=== PATIENT | female | born 1960 | race Caucasian/White ===

== ENCOUNTER 2018-10-22 19:15 | Emergency (ER) | payer BC, OTHER ==
[~2018-10-22] VITALS: Ht 160 cm; Wt 78.6 kg
[2018-10-22 19:24] VITALS: Ht 160 cm; Wt 78.6 kg
[2018-10-22] MEDS ORDERED: ONDANSETRON 4 MG INJ IV STA (20:32)
[2018-10-22] MEDS ORDERED: morphine 4 MG/ML VIAL IV STA (20:32)
[2018-10-22] MEDS ORDERED: IOHEXOL 300MG/ML 150 ML BTL ONE (21:52)
[2018-10-22] MEDS ORDERED: SOD CHLORIDE 0.9% 100 ML ONE (21:52)
[2018-10-22] MEDS ORDERED: KETOROLAC 30 MG INJ IV STA (22:29)
[2018-10-22] MEDS ORDERED: CANA100T PO (22:30)
[2018-10-22] MEDS ORDERED: LISI1TAB4 PO (22:30)
[2018-10-22] MEDS ORDERED: METF100010 PO (22:30)
[2018-10-22] MEDS ORDERED: OMEP40CA6 PO (22:30)
[2018-10-22] MEDS ORDERED: GLIP10TA3 PO (22:30)
--- NOTE | 2018-10-22 22:54 | ERD ---
ER Documentation Chief Complaint Chief Complaint C/O WORSENING EPIGASTRIC AP X6 MONTHS HPI This is a very pleasant 58-year-old female has a known history of rrd-wevyoqe-rrdldupyc diabetes mellitus who presents to the emergency department complaining of epigastric pain for the past 6 months. The patient indicates that she has been seen by her primary care physician and had an ultrasound of the abdomen for evaluation the pain. She was told that this was normal. She had been given antacids to treat suspected GERD. Given that the pain still persisted 3 months later she went to an urgent care clinic. Ultrasound was again performed and found to be normal. She stated that the pain is a retrosternal burning-like pain. The pain will radiate from the epigastric region to the left upper quadrant in the left lower quadrant. She denies any weight loss. She had no hemoptysis no hematemesis no melanotic stools. Her past surgical history includes a cholecystectomy. She states there is no alleviating or exacerbating factors to the pain. It is intermittent. Given that her symptoms have not improved she came to the emergency department to be further evaluated. She has no shortness of breath at rest or exertion. ROS All systems reviewed and are negative except as per history of present illness. Medications Home Meds Reported Medications Omeprazole* (Omeprazole*) 40 Mg Capsule.dr, 40 MG PO DAILY, #30 CAP 10/22/18 Canagliflozin (Invokana) 100 Mg Tablet, 100 MG PO QAM, TAB 10/22/18 Lisinopril/Hydrochlorothiazide (Lisinopril-Hctz 10-12.5 mg Tab) 1 Each Tablet, 1 EACH PO QAM, TAB 10/22/18 Glipizide* (Glucotrol*) 10 Mg Tablet, 10 MG PO BID, TAB 10/22/18 Metformin Hcl* (Metformin Hcl*) 1,000 Mg Tablet, 1000 MG PO WITH BREAKFAST DINNE, #30 TAB 10/22/18 Allergies Allergies: Coded Allergies: No Known Allergy (Unverified , 10/22/18) PMhx/Soc History of Surgery: Yes (LAP JADIEL ) Anesthesia Reaction: No Hx Neurological Disorder: No Hx Respiratory Disorders: No Hx Psychiatric Problems: No Hx Miscellaneous Medical Probl: No Hx Alcohol Use: No Hx Substance Use: No Hx Tobacco Use: No Smoking Status: Never smoker Physical Exam Vitals Vital Signs Date Temp Pulse Resp B/P (MAP) Pulse Ox O2 O2 Flow FiO2 Time Delivery Rate 10/22/18 99.6 105 20 162/84 95 19:24 (110) Physical Exam Constitutional:Well-developed. Well-nourished. HEENT:Normocephalic. Atraumatic.Pupils were equal round reactive to light. Moist mucous membranes.No tonsillar exudates. Respiratory: Not using accessory muscles of respiration.Lungs were clear to auscultation bilaterally. No rhonchi. No rales. No wheezing. Cardiovascular: Regular rate regular rhythm.No murmurs. No rubs were appreciated.S1, S2 normal. Distal pulses are palpable 2+ bilaterally. GI: Abdomen was soft. Epigastric tenderness. Mild tenderness in the left lower quadrant. Non Distended. No pulsatile abdominal masses or bruits. No rebound. No guarding. Bowel sounds were present and normal. Skin: No petechia, no purpura. No lesions on the palms or the soles of the feet. No maculopapular rash. NEURO: Patient was alert, awake, orientated x3.No facial droop. Gait observed and normal with no ataxia.Speech had regular rate and rhythm. No focal neurological deficits. Result Diagram: 10/22/18202310/22/182023 Results 24 hrs Laboratory Tests Test 10/22/18 20:24 White Blood Count 5.8 10^3/ul Red Blood Count 5.47 10^6/ul Hemoglobin 14.6 g/dl Hematocrit 45.0 % Mean Corpuscular Volume 82.3 fl Mean Corpuscular Hemoglobin 26.7 pg Mean Corpuscular Hemoglobin Concent 32.4 g/dl Red Cell Distribution Width 13.1 % Platelet Count 280 10^3/UL Mean Platelet Volume 10.8 fl Immature Granulocytes % 0.200 % Neutrophils % 50.7 % Lymphocytes % 39.6 % Monocytes % 6.9 % Eosinophils % 1.0 % Basophils % 1.6 % Nucleated Red Blood Cells % 0.0 /100WBC Immature Granulocytes # 0.010 10^3/ul Neutrophils # 2.9 10^3/ul Lymphocytes # 2.3 10^3/ul Monocytes # 0.4 10^3/ul Eosinophils # 0.1 10^3/ul Basophils # 0.1 10^3/ul Nucleated Red Blood Cells # 0.0 10^3/ul Prothrombin Time 11.5 Sec Prothrombin Time Ratio 0.9 INR International Normalized Ratio 0.83 Activated Partial Thromboplast Time 24.3 Sec Urine Color STRAW Urine Clarity CLEAR Urine pH 7.0 Urine Specific [place] 1.026 Urine Ketones TRACE mg/dL Urine Nitrite NEGATIVE mg/dL Urine Bilirubin NEGATIVE mg/dL Urine Urobilinogen NEGATIVE mg/dL Urine Leukocyte Esterase 1+ Enrique/ul Urine Microscopic RBC 2 /HPF Urine Microscopic WBC 1 /HPF Urine Hemoglobin 1+ mg/dL Urine Glucose 3+ mg/dL Urine Total Protein NEGATIVE mg/dl Sodium Level 142 mmol/L Potassium Level 4.1 mmol/L Chloride Level 105 mmol/L Carbon Dioxide Level 25 mmol/L Anion Gap 12 Blood Urea Nitrogen 9 mg/dl Creatinine 0.43 mg/dl Est Glomerular Filtrat Rate mL/min > 60 mL/min Glucose Level 172 mg/dl Calcium Level 9.4 mg/dl Total Bilirubin 0.6 mg/dl Direct Bilirubin 0.00 mg/dl Indirect Bilirubin 0.6 mg/dl Aspartate Amino Transf (AST/SGOT) 31 IU/L Alanine Aminotransferase (ALT/SGPT) 23 IU/L Alkaline Phosphatase 123 IU/L Troponin I < 0.012 ng/ml Total Protein 7.9 g/dl Albumin 4.4 g/dl Globulin 3.50 g/dl Albumin/Globulin Ratio 1.25 Amylase Level 75 U/L Lipase 40 U/L Current Medications Medications Dose Sig/Joie Start Time Status Last (Trade) Ordered Route PRN Stop Time Admin Dose Reason Admin Morphine 4 mg ONCE STAT 10/22/18 DC Sulfate IV 20:32 10/22/18 (morphine) 20:35 Ondansetron 4 mg ONCE STAT 10/22/18 DC HCl (Zofran IV 20:32 10/22/18 Inj) 20:35 IV Flush 10 ml STK-MED 10/22/18 DC 10/22/18 (NS 10 ml) ONCE .ROUTE 21:52 10/22/18 22:04 21:53 Sodium 100 ml @ ud STK-MED 10/22/18 DC 10/22/18 Chloride ONCE .ROUTE 21:52 10/22/18 22:04 21:53 Iohexol 150 ml STK-MED 10/22/18 DC 10/22/18 (Omnipaque ONCE .ROUTE 21:52 10/22/18 22:04 300mg/ ml) 21:53 Ketorolac 30 mg ONCE STAT 10/22/18 DC 10/22/18 Tromethamine IV 22:29 10/22/18 22:33 (Toradol) 22:30 Procedures/MDM The patient presented to the emergency department with epigastric pain. My differential diagnosis included but was not limited to abdominal aortic aneurysm, choledocholithiasis, gallstone ileus, renal colic, pyelonephritis, pancreatitis, peptic ulcer disease, atypical myocardical infarction, mesenteric ischemia, GERD, pulmonary infarction. The patient was placed on a registered nurse cardiac, continuous pulse oximetry and IV access was established by nursing staff. An EKG was obtained to rule out myocardial ischemia. There was no elevation of LFTs to suggest ductal obstruction, cholangitis, cholecystiitis or hepatitis. Given that the urinalysis did not show bilirubinuria, my suspicion for common duct obstruction or hepatitis was low. 12 Lead EKG tracing ordered and reviewed by myself showed: Sinus tachycardia 103 bpm and no arrhythmia. CA interval normal. QRS duration normal. No ST segment elevation No ST segment depression. No changes consistent with acute ischemia. I did not obtain an ultrasound of the abdomen given that the pain was more prominent left lower quadrant the patient is received 2 previous abdominal ultrasounds are found to be normal. I did however obtain a CT scan of the abdomen. There is no obvious masses or free air to suggest a diverticular perf oration. The patient did not have any intra-abdominal abscesses. I indicated to the patient I did not have an exact etiology into her symptoms. I did however indicate she would benefit from an outpatient upper endoscopy as I did feel the patient required further evaluation and biopsies. The patient was discharged home in fair condition. They were instructed to return to the emergency department at any time if there was any worsening of their condition. The patient stated they would follow up with their PCP in the next 24-48 hours to initiate a suitable medication regimen under the care of their PCP as well as to allow their PCP to monitor any drug reactions. The patient was discharged home with prescriptions after they gave informed consent to the new medication. They were also fully informed by myself on the adverse effects and adverse drug interactions in order to provide adequate safeguards to prevent possible adverse reactions to medications. Departure Diagnosis: Primary Impression: Epigastric pain Condition: Fair VANI ESPINAL MD Oct 22, 2018 22:54
[2018-10-23 00:11] VITALS: BP 133/72; PULSE 89; RESP 16
== END 2018-10-23 00:11 | disposition home or self-care (01) ==
LOC: E/R 19:15
DX: R10.13 Epigastric pain (principal); E11.9 Type 2 diabetes mellitus without complications; Z79.84 Long term (current) use of oral hypoglycemic drugs
CPT/HCPCS: 36415; 71045; 74177; 80053; 81001; 82150; 83690; 84484; 85025; 85610; 85730; 87086; 93005; 96374; 99285; J1885; Q9967